=== PATIENT | male | born 1945 | race Caucasian/White ===

== ENCOUNTER 2017-05-04 11:17 | Observation (INO) ==
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
[2017-05-04] MEDS ORDERED: 0.9 % Sodium Chloride 1,000 ML IVC SCH ×2 (11:45→15:07)
[2017-05-04] MEDS ORDERED: Aspirin Enteric Coated 81 MG Tablet PO SCH (11:45)
[2017-05-04 11:57] LABS: Basophils % 0.2 %; Eosinophils # 0.1 K/mcL (0.0-0.6); Hematocrit 31.3 % (37.5-50.1); Hemoglobin 10.9 g/dL (12.9-16.9); Immature Granulocytes % 0.3 % (0-4); Lymphocytes # 0.5 K/mcL (0.6-4.6); Lymphocytes % 3.8 %; Mean Corpuscular HGB Conc 34.8 g/dL (31.6-35.5); Mean Corpuscular Hemoglobin 33.7 pg (28.0-33.3); Mean Corpuscular Volume 96.9 fL (83.0-100.0); Monocytes # 0.8 K/mcL (0.0-1.3); Monocytes % 5.4 %; Neutrophils # 12.7 K/mcL (1.6-8.9); Platelet Count 176 K/mcL (140-400); Red Blood Count 3.23 M/mcL (4.19-5.50); Red Cell Distribution Width 12.8 % (11.5-14.5); Segmented Neutrophils % 89.3 %
[2017-05-04 12:15] LABS: Alanine Aminotransferase 21 Units/L (7-52); Albumin/Globulin Ratio 1.6 (1.1-2.2); Alkaline Phosphatase 134 Units/L (34-104); Aspartate Amino Transferase 33 Units/L (13-39); BUN/Creatinine Ratio 18 (6-26); Bilirubin,Total 0.6 mg/dL (0.3-1.0); Blood Urea Nitrogen 13 mg/dL (8-23); Calcium 8.7 mg/dL (8.6-10.3); Carbon Dioxide 25 mEq/L (23-29); Chloride 100 mEq/L (98-107); Globulin 2.5 g/dL (2.4-3.5); Glucose 101 mg/dL (70-105); Osmolality,Calculated 276 (280-300); Potassium 4.7 mEq/L (3.5-5.1); Sodium 133 mEq/L (136-145); Total Protein 6.5 g/dL (6.4-8.9); eGFR For Non-African Americans > 60 (> 60)
[2017-05-04] MEDS ORDERED: Levofloxacin 750 MG/150 ML 750 MG/150 ML BAG IVPB ONE (12:39)
[2017-05-04] MEDS ORDERED: Naloxone 0.4 MG/ML INJ IVP PRN (15:07)
[2017-05-04] MEDS ORDERED: DICLOFENAC TOPICAL TP PRN (15:07)
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
[2017-05-04] MEDS: traMADol 50 MG TABLET PO PRN (19:04)
[2017-05-04] MEDS: Azithromycin 500 MG in D5% in Water 250 ML IVPB SCH (19:52)
[2017-05-04] MEDS: Lactobacillus 1 EACH CAP.SPRINK PO SCH (19:55)
[2017-05-04] MEDS: DICLOFENAC 75MG PO SCH (19:56)
[2017-05-05] MEDS: traMADol 50 MG TABLET PO PRN ×2 (00:39→09:19)
[2017-05-05 03:53] LABS: Basophils % 0.1 %; Eosinophils # 0.3 K/mcL (0.0-0.6); Eosinophils % 1.8 %; Hematocrit 30.3 % (37.5-50.1); Hemoglobin 10.5 g/dL (12.9-16.9); Immature Granulocytes % 0.4 % (0-4); Lymphocytes # 1.6 K/mcL (0.6-4.6); Lymphocytes % 10.3 %; Mean Corpuscular HGB Conc 34.7 g/dL (31.6-35.5); Mean Corpuscular Hemoglobin 33.5 pg (28.0-33.3); Mean Corpuscular Volume 96.8 fL (83.0-100.0); Mean Platelet Volume 9.1 fL (9.4-12.4); Monocytes # 0.8 K/mcL (0.0-1.3); Monocytes % 5.4 %; Neutrophils # 12.4 K/mcL (1.6-8.9); Platelet Count 154 K/mcL (140-400); Red Blood Count 3.13 M/mcL (4.19-5.50); Red Cell Distribution Width 13.1 % (11.5-14.5)
[2017-05-05 04:14] LABS: Alanine Aminotransferase 17 Units/L (7-52); Albumin 3.8 g/dL (3.5-5.7); Albumin/Globulin Ratio 1.5 (1.1-2.2); Alkaline Phosphatase 125 Units/L (34-104); Aspartate Amino Transferase 24 Units/L (13-39); BUN/Creatinine Ratio 14 (6-26); Bilirubin,Total 0.4 mg/dL (0.3-1.0); Blood Urea Nitrogen 8 mg/dL (8-23); Calcium 8.7 mg/dL (8.6-10.3); Carbon Dioxide 25 mEq/L (23-29); Chloride 101 mEq/L (98-107); Globulin 2.6 g/dL (2.4-3.5); Glucose 103 mg/dL (70-105); Osmolality,Calculated 277 (280-300); Potassium 3.7 mEq/L (3.5-5.1); Sodium 134 mEq/L (136-145); Total Protein 6.4 g/dL (6.4-8.9); eGFR For Non-African Americans > 60 (> 60)
[2017-05-05] MEDS ORDERED: Aspirin 81 MG TAB.CHEW PO SCH (09:00)
[2017-05-05] MEDS ORDERED: Aspirin Enteric Coated 81 MG Tablet PO SCH ×3 (09:00→11:07)
[2017-05-05] MEDS: Lactobacillus 1 EACH CAP.SPRINK PO SCH ×2 (09:19→20:01)
[2017-05-05] MEDS: Isosorbide MONOnitrate (24 HR) 30 MG TAB.ER.24H PO SCH (09:19)
[2017-05-05] MEDS: DICLOFENAC 75MG PO SCH ×2 (09:20→20:02)
[2017-05-05 09:34] LABS: % Iron Saturation 6 % (20-55); Ferritin 132 ng/ml (20-250); Iron 18 mcg/dL (65-175); Transferrin 217 mg/dL (203-362)
[2017-05-05 09:36] LABS: Folate 16.3 ng/mL (3.0-16.0)
--- NOTE | 2017-05-05 11:08 | Internal Med Progress Note ---
Date of Encounter: 05/05/17 Time of Encounter: 11:00 - Assessment and plan (1) Pneumonia Current Visit: Yes Status: Acute Assessment and plan: May 05. Continue Rocephin, Zithromax, and lactobacillus. Anticipate discharge home tomorrow. We will check room air oximetry prior to discharge. Qualifiers: Pneumonia type: due to unspecified organism Laterality: left Lung location: lower lobe of lung Qualified Code(s): J18.1 - Lobar pneumonia, unspecified organism (2) Hypertension Current Visit: No Status: Chronic Assessment and plan: May 05. Blood pressure fluctuating. Will hold lisinopril to avoid hypotension. Continue Hytrin for blood pressure and BPH symptoms. Qualifiers: Hypertension type: unspecified secondary hypertension Qualified Code(s): I15.9 - Secondary hypertension, unspecified; I15 - Secondary hypertension (3) Chest pain Current Visit: No Status: Acute Assessment and plan: May 05. Resolved. Cardiac enzymes were negative. Will not workup further at this time. Qualifiers: Chest pain type: unspecified Qualified Code(s): R07.9 - Chest pain, unspecified (4) Anemia Current Visit: No Status: Acute Assessment and plan: May 05. Anemia testing showed iron 18, transferrin saturation 6%, transferrin 217, ferritin 132, B12 264, and folate 16.3. Will order ferrous sulfate with vitamin C. Qualifiers: Anemia type: unspecified type Qualified Code(s): D64.9 - Anemia, unspecified - Subjective Interval history: May 05. He feels slightly improved but not back to baseline. He complains of right leg pain which has been present for a month. There was no injury associated. - Constitutional Vitals: Temp Pulse Resp BP Pulse Ox 98.8 F 100 18 90/40 93 05/05/17 10:30 05/05/17 10:30 05/05/17 10:30 05/05/17 10:30 05/05/17 10:30 Exam: He is resting comfortably on the side of bed and appears in no acute distress. His affect is bright and cheerful. I reviewed his medications and lab results. Internal Medicine: Result - Labs CBC & Chem 7: 05/05/17 03:25 05/05/17 03:25 Labs: Short CBC 05/05/17 Range/Units 03:25 WBC 15.1 H (4.3-11.1) K/mcL Hgb 10.5 L (12.9-16.9) g/dL Hct 30.3 L (37.5-50.1) % Plt Count 154 (140-400) K/mcL Neutrophils # 12.4 H (1.6-8.9) K/mcL BMP 05/05/17 03:25 Sodium 134 L Potassium 3.7 Chloride 101 Carbon Dioxide 25 BUN 8 Creatinine 0.59 L Glucose 103 Calcium 8.7 Cardiac Enzymes 05/04/17 05/04/17 05/05/17 Range/Units 16:01 21:20 03:25 Troponin I < 0.03 < 0.03 < 0.03 (< 0.04) ng/mL Liver Function 05/05/17 Range/Units 03:25 Total Bilirubin 0.4 (0.3-1.0) mg/dL AST 24 (13-39) Units/L ALT 17 (7-52) Units/L Alkaline Phosphatase 125 H (34-104) Units/L Albumin 3.8 (3.5-5.7) g/dL - Impressions Impressions Chest X-Ray 05/04/17 15:07 IMPRESSION: Left lower lobe pneumonia D/ / Obi Nixon MD / Obi Nixon MD Interpreting Provider: Obi Nixon MD Consult Discharge Plan - Plan Referrals: Estella Landaverde, LETHA [Primary Care Provider] - 1 week
[2017-05-05] MEDS: Acetaminophen 325 MG TABLET PO SCH ×3 (12:06→23:54)
[2017-05-05] MEDS: traMADol 50 MG TABLET PO SCH ×3 (12:07→23:55)
[2017-05-05] MEDS: Azithromycin 500 MG in D5% in Water 250 ML IVPB SCH (18:46)
[2017-05-06] MEDS: Acetaminophen 325 MG TABLET PO SCH (06:28)
[2017-05-06] MEDS: traMADol 50 MG TABLET PO SCH (06:29)
[2017-05-06] MEDS ORDERED: Ascorbic Acid 500 MG TABLET PO SCH (06:30)
[2017-05-06 06:37] LABS: Basophils # 0.1 K/mcL (0.0-0.2); Basophils % 0.5 %; Eosinophils # 0.6 K/mcL (0.0-0.6); Eosinophils % 6.1 %; Hematocrit 29.9 % (37.5-50.1); Hemoglobin 10.2 g/dL (12.9-16.9); Immature Granulocytes % 0.9 % (0-4); Lymphocytes # 1.7 K/mcL (0.6-4.6); Lymphocytes % 17.5 %; Mean Corpuscular HGB Conc 34.1 g/dL (31.6-35.5); Mean Corpuscular Hemoglobin 33.6 pg (28.0-33.3); Mean Corpuscular Volume 98.4 fL (83.0-100.0); Mean Platelet Volume 9.3 fL (9.4-12.4); Monocytes % 10.4 %; Neutrophils # 6.4 K/mcL (1.6-8.9); Platelet Count 164 K/mcL (140-400); Red Blood Count 3.04 M/mcL (4.19-5.50); Red Cell Distribution Width 12.7 % (11.5-14.5); Segmented Neutrophils % 64.6 %
[2017-05-06 06:40] VITALS: BP 121/70
[2017-05-06 06:57] LABS: BUN/Creatinine Ratio 19 (6-26); Blood Urea Nitrogen 11 mg/dL (8-23); Calcium 8.6 mg/dL (8.6-10.3); Carbon Dioxide 27 mEq/L (23-29); Chloride 102 mEq/L (98-107); Glucose 98 mg/dL (70-105); Osmolality,Calculated 277 (280-300); Potassium 3.6 mEq/L (3.5-5.1); Sodium 134 mEq/L (136-145); Uric Acid 4.1 mg/dL (2.3-7.6); eGFR For Non-African Americans > 60 (> 60)
[2017-05-06] MEDS: Lactobacillus 1 EACH CAP.SPRINK PO SCH (10:20)
--- NOTE | 2017-05-06 10:20 | Discharge Summary ---
Orders not resulted at time of discharge: Pending orders 05/04/17 13:05 Culture,Blood,Additional [BC] Routine Date of Encounter: 05/06/17 Time of Encounter: 10:00 - Discharge Diagnosis (1) Pneumonia Priority: Primary Status: Acute Qualifiers: Pneumonia type: due to unspecified organism Laterality: left Lung location: lower lobe of lung Qualified Code(s): J18.1 - Lobar pneumonia, unspecified organism (2) Hypertension Priority: Secondary Status: Chronic Qualifiers: Hypertension type: essential hypertension Qualified Code(s): I10 - Essential (primary) hypertension (3) Chest pain Priority: Secondary Status: Resolved Qualifiers: Chest pain type: unspecified Qualified Code(s): R07.9 - Chest pain, unspecified (4) Anemia Priority: Secondary Status: Acute Qualifiers: Anemia type: iron deficiency Iron deficiency anemia type: unspecified iron deficiency Qualified Code(s): D50.9 - Iron deficiency anemia, unspecified (5) Sciatic nerve pain Priority: Primary Status: Acute Qualifiers: Laterality: right Qualified Code(s): M54.31 - Sciatica, right side Hospital course: Mr. Champion is a 71 year old male who came to emergency room stating approximately 0830 today he had developed discomfort in his wrists that radiated up his arms to his chest. He describes it as a "sharp" discomfort that lasted 3-4 minutes at severe intensity than decreased somewhat but never resolved. There was slight dyspnea associated. When the discomfort did not resolve he became concerned it might be his heart so came to emergency room. His evaluated and found to have leukocytosis with left shift and evidence of left lower lobe pneumonia. He was admitted to [facility] floor for ongoing care needs. Initial orders were written by the emergency room physician. I saw him on May 04 and performed the history and physical. He was given Levaquin in emergency room. I changed him to Rocephin and Zithromax with lactobacillus. He had good clinical response with normalization of WBC to 9.9 on day of discharge and resolution of the left shift. He remained afebrile the last 24 hours hospitalization. He will continue with antibiotic and probiotic for 3 additional days at discharge. Anemia testing showed iron 18, transferrin saturation 6%, transferrin 217, ferritin 132, B12 264, and folate 16.3. He was started on ferrous sulfate with ascorbic acid and this will be continued at discharge. His PCP can monitor his clinical response. He complained of right leg pain. Exam showed likely sciatica. He will be prescribed gabapentin and tramadol. He will continue Voltaren as at home. On May 06 I felt he was stable for discharge home. He will follow with his PCP within 1 week. Room air oximetry will be checked prior to discharge. - Time Spent with Patient Total time spent providing and/or coordinating discharge services: - Discharge Medications Prescriptions: Cefuroxime PO [Ceftin] 500 mg PO Q12HR #6 tablet Ascorbic Acid [C-500] 500 mg PO DAILY #30 tablet Azithromycin [Zithromax] 250 mg PO DAILY #3 tablet Ferrous Sulfate 325 mg PO DAILY #30 tablet Gabapentin [Neurontin] 100 mg PO TID 5 Days #15 capsule Lactobacillus [Culturelle] 1 each PO BID #6 cap.sprink Tramadol HCl [Tramadol HCl ER] 100 mg PO Q6H 5 Days #20 tab.er.24h Home Medications: Aspirin 81 mg PO DAILY 11/15/15 [History] Isosorbide MONOnitrate (24 HR) [Imdur] 30 mg PO DAILY 11/15/15 [History] Lisinopril [Zestril] 10 mg PO DAILY 11/15/15 [History] Pantoprazole Sodium [Protonix] 40 mg PO BID 11/15/15 [History] Phenytoin ER [Dilantin ER] 100 mg PO BID 11/15/15 [History] Simvastatin [Zocor] 40 mg PO DAILY 11/15/15 [History] Diclofenac Sodium [Voltaren] 75 mg PO BID 05/04/17 [History] Diclofenac Sodium [Voltaren] 100 gm TP TID PRN 05/04/17 [History] Terazosin HCl 2 cap PO BID 05/04/17 [History] Ascorbic Acid [C-500] 500 mg PO DAILY #30 tablet 05/06/17 [Rx] Azithromycin [Zithromax] 250 mg PO DAILY #3 tablet 05/06/17 [Rx] Cefuroxime PO [Ceftin] 500 mg PO Q12HR #6 tablet 05/06/17 [Rx] Ferrous Sulfate 325 mg PO DAILY #30 tablet 05/06/17 [Rx] Gabapentin [Neurontin] 100 mg PO TID 5 Days #15 capsule 02/27/18 [Rx] Lactobacillus [Culturelle] 1 each PO BID #6 cap.sprink 05/06/17 [Rx] Tramadol HCl [Tramadol HCl ER] 100 mg PO Q6H 5 Days #20 tab.er.24h 05/06/17 [Rx] Allergies/Adverse Reactions: 3 Allergy/AdvReac Type Severity Reaction Status Date / Time Penicillins [PCN] Allergy Hives Verified 12/05/15 12:50 Date of admission: 05/04/17 13:03 Primary care physician: Estella Landaverde Consults: 05/04/17 15:38 Consult to Tong Hooker [CONS] Routine Reason for SW Consult: D/C planning - Constitutional Vitals: Temp Pulse Resp BP Pulse Ox 98.8 F 87 16 121/70 98 05/06/17 06:39 05/06/17 06:39 05/06/17 06:39 05/06/17 06:39 05/06/17 08:28 - Patient Status Disposition: Home, Self-Care Condition: Good Functional capacity at discharge: independent ambulation Overall status at discharge: patient is progressing back to baseline - Discharge Instructions Follow Up With: Estella Landaverde, FLEET SERVICE CLERK [Primary Care Provider] - 1 week - Diet and Activity Activity: resume usual activities as tolerated Diet: advance to your usual diet
[2017-05-06] MEDS: DICLOFENAC 75MG PO SCH (10:21)
[2017-05-06] MEDS: Isosorbide MONOnitrate (24 HR) 30 MG TAB.ER.24H PO SCH (10:21)
--- NOTE | 2017-05-06 18:33 | Electrocardiograph Report ---
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
--- NOTE | 2017-05-09 07:18 | Electrocardiograph Report ---
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
== END 2017-05-06 13:01 | disposition home or self-care (01) ==
LOC: EMEROOPIK 11:17 → INPPIK 11:17
PROVIDERS: ADMIT Internal Medicine; ATTEND Internal Medicine